=== PATIENT | male | born 1960 | race Caucasian/White ===

== ENCOUNTER 2022-05-13 03:47 | Inpatient (IN) | payer BC ==
[~2022-05-13] VITALS: Ht 182.9 cm; Wt 127.0 kg
[2022-05-13] MEDS ORDERED: SODIUM CHLORIDE 0.9% 1,000 ML IV ONE (04:15)
[2022-05-13] MEDS ORDERED: ONDANSETRON HCL 4MG/2ML INJ IV STA (04:15)
[2022-05-13 04:38] LABS: HEMATOCRIT. 37.2 % (42.0-52.0); HEMOGLOBIN. 11.8 g/dL (14.0-18.0); MEAN CORPUSCULAR HEMOGLOBIN 28.7 pg (28.0-32.0); MEAN CORPUSCULAR VOLUME 90.2 fL (80.0-94.0); MEAN PLATELET VOLUME 8.3 fl (7.4-10.4); PLATELET 288 x1000/uL (130-400); RED BLOOD CELL COUNT 4.12 mill/uL (4.7-6.1); RED CELL DISTRIBUTION WIDTH 15.3 % (11.6-14.6)
[2022-05-13 04:45] LABS: BG BASE EXCESS -7.7 mmol/L (-2.0-2.0); BG CARBOXYHEMOGLOBIN 0.2 % (0.5-1.5); BG DEOXYHEMOGLOBIN 5.5 % (0.0-5.0); BG FRACTION INSPIRED OXYGEN 21; BG HCO3 ACT 18.9 mmol/L (22.0-26.0); BG METHEMOGLOBIN 0.2 % (0.0-1.5); BG OXYGEN SATURATION 94.5 % (92.0-98.5); BG OXYHEMOGLOBIN 94.1 % (94.0-97.0); BG PCO2 42.5 mmHg (35.0-45.0); BG PH 7.265 (7.350-7.450); BG PO2 79.5 mmHg (75.0-100.0); BG SAMPLE SITE RIGHT RADIAL; BG TOTAL HEMOGLOBIN 12.4 g/dL (12.0-18.0); BG VENT MODE ROOM AIR
[2022-05-13 04:47] LABS: CHLORIDE 113 mEq/L (98-107)
[2022-05-13 04:54] LABS: ETHANOL BLOOD < 10 mg/dL
[2022-05-13 05:07] LABS: PLATELET ESTIMATE NORMAL
[2022-05-13] MEDS ORDERED: AZITHROMYCIN 500MG/250ML 250 ML IV ONE (05:15)
[2022-05-13] MEDS ORDERED: CEFTRIAXONE 1 G PREMIX 50 ML IV ONE (05:15)
[2022-05-13] MEDS ORDERED: AMLODIPINE 5MG TABLET PO ONE (06:45)
[2022-05-13] MEDS ORDERED: HYDRALAZINE 20MG/ML VIAL IV ONE (07:00)
[2022-05-13 12:00] VITALS: BP 180/100
[2022-05-13] MEDS ORDERED: CEFTRIAXONE SODIUM 1 G/VIAL IM ONE (12:45)
[2022-05-13] MEDS ORDERED: DEXTROSE 50% WATER 50ML SYRINGE IV PRN (12:45)
[2022-05-13] MEDS: BLOOD SUGAR DIAGNOSTIC STRIP TEST SCH ×3 (12:54→21:25)
[2022-05-13] MEDS: INSULIN LISPRO 100 UNITS/ML SUBCUT SCH ×3 (12:58→21:30)
[2022-05-13] MEDS: HYDRALAZINE 20MG/ML VIAL IV PRN (12:58)
[2022-05-13 13:00] VITALS: BP 160/78
[2022-05-13] MEDS ORDERED: CEFTRIAXONE 1 G PREMIX 50 ML IV SCH (13:00)
[2022-05-13] MEDS: AMLODIPINE 10MG TABLET PO SCH (14:07)
[2022-05-13 16:00] VITALS: BP 146/62
[2022-05-13] MEDS: DOXYCYCLINE HYCLATE 100MG CAPSULE PO SCH (21:19)
[2022-05-13] MEDS ORDERED: BACL20TA PO (21:30)
[2022-05-13] MEDS ORDERED: ACYC200C31 PO (21:30)
[2022-05-13] MEDS ORDERED: ROPI2TAB28 PO (21:30)
[2022-05-13] MEDS ORDERED: GLIP10TA10 PO (21:30)
[2022-05-13] MEDS ORDERED: GABA800T97 PO (21:30)
[2022-05-13] MEDS ORDERED: TRAZ-251 PO (21:30)
[2022-05-13] MEDS ORDERED: ENZA40CA PO (21:30)
[2022-05-13] MEDS ORDERED: AMLO10TA80 PO (21:30)
[2022-05-13] MEDS ORDERED: SITA100T11 PO (21:30)
[2022-05-14] MEDS: FAMOTIDINE 20MG/2ML VIAL IV SCH ×2 (00:35→10:01)
[2022-05-14] MEDS: ONDANSETRON HCL 4MG/2ML INJ IV PRN ×2 (00:35→05:57)
[2022-05-14] MEDS: ACETAMINOPHEN 325MG TABLET PO PRN ×3 (00:36→10:00)
[2022-05-14] MEDS: CEFTRIAXONE 1,000 MG in DEXTROSE 5% WATER 50 ML IV SCH (05:57)
[2022-05-14 06:00] VITALS: BP 152/62
[2022-05-14 06:33] LABS: BASOPHILS % 0.7 % (0.0-2.0); EOSINOPHILS % 1.1 % (0.0-5.0); HEMATOCRIT. 35.9 % (42.0-52.0); HEMOGLOBIN. 11.6 g/dL (14.0-18.0); LYMPHOCYTES % 9.4 % (20.0-50.0); MEAN CORPUSCULAR HEMOGLOBIN 28.8 pg (28.0-32.0); MEAN CORPUSCULAR VOLUME 89.3 fL (80.0-94.0); MEAN PLATELET VOLUME 8.4 fl (7.4-10.4); MONOCYTES % 3.8 % (2.0-8.0); PLATELET 297 x1000/uL (130-400); RED BLOOD CELL COUNT 4.02 mill/uL (4.7-6.1); RED CELL DISTRIBUTION WIDTH 15.4 % (11.6-14.6)
[2022-05-14 07:12] LABS: PHOSPHORUS 3.7 mg/dL (2.5-4.9)
[2022-05-14] MEDS: BLOOD SUGAR DIAGNOSTIC STRIP TEST SCH ×4 (07:31→20:29)
[2022-05-14] MEDS: INSULIN LISPRO 100 UNITS/ML SUBCUT SCH ×4 (07:32→20:55)
[2022-05-14 08:00] VITALS: BP 155/78
[2022-05-14] MEDS ORDERED: AZITHROMYCIN 500 MG TABLET PO SCH (09:00)
[2022-05-14] MEDS: AMLODIPINE 10MG TABLET PO SCH (10:01)
[2022-05-14] MEDS: DOXYCYCLINE HYCLATE 100MG CAPSULE PO SCH ×2 (10:01→17:31)
[2022-05-14] MEDS ORDERED: HYDROCODONE/ACETAMINOPHEN 10/325MG TABLET PO PRN (10:45)
[2022-05-14] MEDS ORDERED: NALOXONE HCL 0.4MG/ML VIAL IV PRN (11:00)
[2022-05-14 12:00] VITALS: BP 152/89
[2022-05-14 16:00] VITALS: BP 148/76
[2022-05-14 20:00] VITALS: BP 154/76
[2022-05-15] VITALS: BP 146/75
[2022-05-15 04:00] VITALS: BP 180/90
[2022-05-15] MEDS: HYDRALAZINE 20MG/ML VIAL IV PRN ×3 (04:08→18:16)
[2022-05-15] MEDS: CEFTRIAXONE 1,000 MG in DEXTROSE 5% WATER 50 ML IV SCH (05:09)
[2022-05-15] MEDS: BLOOD SUGAR DIAGNOSTIC STRIP TEST SCH ×4 (06:10→21:04)
[2022-05-15] MEDS: INSULIN LISPRO 100 UNITS/ML SUBCUT SCH ×4 (06:12→21:06)
[2022-05-15 08:00] VITALS: BP 166/103
[2022-05-15] MEDS: FAMOTIDINE 20MG/2ML VIAL IV SCH (08:46)
[2022-05-15] MEDS: DOXYCYCLINE HYCLATE 100MG CAPSULE PO SCH ×2 (08:46→18:02)
[2022-05-15] MEDS: AMLODIPINE 10MG TABLET PO SCH (08:47)
[2022-05-15] MEDS ORDERED: DOXY150T5 MT (11:28)
[2022-05-15] MEDS ORDERED: MEDICATION NOT ON FORMULARY EA (Sitagliptin Phosphate (Januvia) 100 MG) PO SCH (11:30)
[2022-05-15 12:00] VITALS: BP 153/80
[2022-05-15] MEDS: LINAGLIPTIN 5MG TABLET PO SCH (12:21)
[2022-05-15] MEDS ORDERED: ZOLPIDEM TARTRATE 5MG TABLET PO PRN (15:30)
[2022-05-15] MEDS: METOPROLOL TARTRATE 25MG TABLET PO SCH (15:58)
[2022-05-15 16:00] VITALS: BP 169/76
[2022-05-15 16:25] LABS: BASOPHILS % 0.6 % (0.0-2.0); EOSINOPHILS % 2.6 % (0.0-5.0); HEMATOCRIT. 31.7 % (42.0-52.0); HEMOGLOBIN. 10.3 g/dL (14.0-18.0); LYMPHOCYTES % 7.4 % (20.0-50.0); MEAN CORPUSCULAR HEMOGLOBIN 29.1 pg (28.0-32.0); MEAN CORPUSCULAR VOLUME 89.1 fL (80.0-94.0); MEAN PLATELET VOLUME 8.6 fl (7.4-10.4); MONOCYTES % 4.7 % (2.0-8.0); NEUTROPHILS % 84.7 % (40.0-76.0); PLATELET 253 x1000/uL (130-400); RED BLOOD CELL COUNT 3.56 mill/uL (4.7-6.1); RED CELL DISTRIBUTION WIDTH 14.9 % (11.6-14.6)
[2022-05-15 16:54] LABS: CHLORIDE 110 mEq/L (98-107)
[2022-05-15 20:00] VITALS: BP 132/69
[2022-05-16] VITALS: BP 128/70
[2022-05-16 04:00] VITALS: BP 148/78
[2022-05-16] MEDS: CEFTRIAXONE 1,000 MG in DEXTROSE 5% WATER 50 ML IV SCH (05:55)
[2022-05-16] MEDS: INSULIN LISPRO 100 UNITS/ML SUBCUT SCH ×2 (06:47→12:40)
[2022-05-16] MEDS: BLOOD SUGAR DIAGNOSTIC STRIP TEST SCH ×2 (06:47→11:55)
[2022-05-16 08:00] VITALS: BP 134/80
[2022-05-16] MEDS: LINAGLIPTIN 5MG TABLET PO SCH (08:49)
[2022-05-16] MEDS: DOXYCYCLINE HYCLATE 100MG CAPSULE PO SCH (08:50)
[2022-05-16] MEDS: METOPROLOL TARTRATE 25MG TABLET PO SCH (08:50)
[2022-05-16] MEDS: AMLODIPINE 10MG TABLET PO SCH (08:51)
[2022-05-16] MEDS ORDERED: ENOXAPARIN 40MG/0.4ML SYR SUBCUT SCH (09:00)
[2022-05-16] MEDS ORDERED: FAMOTIDINE 20MG TABLET PO SCH (09:00)
[2022-05-16 12:00] VITALS: BP 155/82
[2022-05-16 12:47] VITALS: BP 155/82
== END 2022-05-16 13:25 | disposition home or self-care (01) | DRG 871 ==
LOC: ER 03:47 → 8WST 09:45 → EDBEDREQ 09:48
PROVIDERS: ADMIT Family Medicine; ATTEND Family Medicine
DX: A41.9 Sepsis, unspecified organism (principal); G92.8 Other toxic encephalopathy; J18.9 Pneumonia, unspecified organism; E44.0 Moderate protein-calorie malnutrition; N18.4 Chronic kidney disease, stage 4 (severe); E66.9 Obesity, unspecified; Z20.822 Contact with and (suspected) exposure to COVID-19; I12.9 Hypertensive chronic kidney disease with stage 1 through stage 4 chronic kidney disease, or unspecified chronic kidney disease; R56.9 Unspecified convulsions; E11.22 Type 2 diabetes mellitus with diabetic chronic kidney disease; E11.649 Type 2 diabetes mellitus with hypoglycemia without coma; D63.1 Anemia in chronic kidney disease; E11.65 Type 2 diabetes mellitus with hyperglycemia; Z87.891 Personal history of nicotine dependence; Z86.73 Personal history of transient ischemic attack (TIA), and cerebral infarction without residual deficits; Z85.528 Personal history of other malignant neoplasm of kidney; Z85.46 Personal history of malignant neoplasm of prostate; Z68.38 Body mass index [BMI] 38.0-38.9, adult; W06.XXXA Fall from bed, initial encounter; Y93.89 Activity, other specified; Y92.89 Other specified places as the place of occurrence of the external cause; Y99.8 Other external cause status
CPT/HCPCS: 36415; 36600; 71045; 76770; 80048; 80053; 80307; 80320; 80329; 82140; 82375; 82805; 82962; 83036; 83605; 83735; 84100; 84145; 84484; 85025; 87426; 93005; 99291; J0360; J0456; J0696; J1650; J1815; J2405; J3490; J7030; J7060; G0480